=== PATIENT | female | born 1975 ===

== ENCOUNTER 2017-04-23 13:17 | Observation (INO) | payer OTHER ==
[2017-04-23 14:34] LABS: BASO % 0.5 % (0.0-2.0); EOS # 0.1 K/uL (0.0-0.7); EOS % 1.5 % (0.0-4.0); HEMATOCRIT 36.2 % (34.0-47.0); LYMPH # 1.5 K/uL (1.0-4.3); LYMPH % 18.8 % (20.0-40.0); MEAN CORPUSCULAR HEMOGLOBIN 27.6 pg (27.0-31.0); MEAN CORPUSCULAR HGB CONC 33.2 g/dL (33.0-37.0); MEAN PLATELET VOLUME 7.7 fL (7.2-11.7); MONO # 0.5 K/uL (0.0-0.8); MONO % 6.8 % (0.0-10.0); NRBC % 0.1 % (0.0-2.0); RED CELL DISTRIBUTION WIDTH 14.6 % (11.5-14.5); WHITE BLOOD COUNT 8.1 K/uL (4.8-10.8)
[2017-04-23 14:43] LABS: CHLORIDE 105 mmol/L (98-107)
[2017-04-23 14:44] LABS: SODIUM 138 mmol/L (132-148)
[2017-04-23 14:45] LABS: POTASSIUM 4.4 mmol/L (3.6-5.2)
[2017-04-23 14:46] LABS: GFR AFRICAN-AMERICAN > 60
[2017-04-23 14:47] LABS: ALB/GLOB RATIO 1.2 (1.0-2.1); ALKALINE PHOSPHATASE 68 U/L (38-126); ALT/SGPT 46 U/L (9-52); AST/SGOT 54 U/L (14-36); BILIRUBIN,TOTAL 0.7 mg/dL (0.2-1.3); BLOOD UREA NITROGEN 17 mg/dL (7-17); CARBON DIOXIDE 25 mmol/L (22-30); GLUCOSE,RANDOM 117 mg/dL (65-105); TOTAL PROTEIN 7.3 g/dL (6.3-8.3)
--- NOTE | 2017-04-23 14:47 | RAD ---
PROCEDURE: CHEST RADIOGRAPH, 1 VIEW HISTORY: chest pain COMPARISON: None available. FINDINGS: LUNGS: Clear. PLEURA: No pneumothorax or pleural fluid seen. CARDIOVASCULAR: Normal. OSSEOUS STRUCTURES: No significant abnormalities. VISUALIZED UPPER ABDOMEN: Normal. OTHER FINDINGS: None. IMPRESSION: No active disease.
[2017-04-23 14:48] LABS: CALCIUM 8.6 mg/dl (8.6-10.4)
[2017-04-23 14:50] LABS: RBC URINE 5 /hpf (0-3); URINE BILIRUBIN NEGATIVE (NEGATIVE); URINE BLOOD 2+ (NEGATIVE); URINE COLOR Yellow (YELLOW); URINE GLUCOSE (UA) NORMAL (Normal); URINE KETONE TRACE mg/dL (NEGATIVE); URINE LEUKOCYTE ESTERASE NEG Leu/uL (Negative); URINE PROTEIN NEGATIVE (NEGATIVE); URINE UROBILINOGEN NORMAL mg/dL (0.2-1.0); WBC URINE 2 /hpf (0-5)
--- NOTE | 2017-04-23 14:59 | C.PDOC ---
History Of Present Illness 41 year old patient presents to the ED complaining of intermittent left sided chest pain radiating to her left arm. Patient states the pain has a squeezing sensation, is reproducible and non-pleuritic. Patient also complains of headache and left sided breast pain. Patient denies shortness of breath, abdominal pain, nausea, vomiting, diarrhea, palpitations, history of cardiac disease, family history of cardiac disease, diabetes, hypertension, smoking, or hyperlipidemia. Time Seen by Provider: 04/23/17 14:06 Chief Complaint (Nursing): Chest Pain History Per: Patient History/Exam Limitations: no limitations Onset/Duration Of Symptoms: Intermittent Episodes Current Symptoms Are (Timing): Still Present Context: Other Severity: Mild Pain Scale Rating Of: 3 Quality: "Pain", Other (squeezing) Alleviating Factors: None Recent travel outside of the [place]: No Past Medical History Reviewed: Historical Data, Nursing Documentation, Vital Signs Vital Signs: Last Vital Signs Temp 97.4 F L 04/23/17 13:23 Pulse 93 H 04/23/17 13:23 Resp 18 04/23/17 13:23 BP 115/80 04/23/17 13:23 Pulse Ox 98 04/23/17 15:43 - Medical History PMH: Asthma, Kidney Stones Surgical History: Family History: States: No Known Family Hx - Social History Hx Tobacco Use: No Hx Alcohol Use: No Hx Substance Use: No - Immunization History Hx Tetanus Toxoid Vaccination: No Hx Influenza Vaccination: No Hx Pneumococcal Vaccination: No Review Of Systems Except As Marked, All Systems Reviewed And Found Negative. Cardiovascular: Positive for: Chest Pain (left sided). Negative for: Palpitations Respiratory: Negative for: Shortness of Breath Gastrointestinal: Negative for: Nausea, Vomiting, Abdominal Pain, Diarrhea Musculoskeletal: Positive for: Arm Pain (left), Other (left breast pain) Physical Exam - Physical Exam Appears: Non-toxic, No Acute Distress Skin: Warm, Dry, No Rash Head: Atraumatic, Normacephalic Eye(s): bilateral: Normal Inspection, PERRL, EOMI Oral Mucosa: Moist Neck: Normal ROM, Supple Chest: Symmetrical, Tenderness (left upper chest on palpation), Other (left breast: small, hard nodule below nipple. tender to palpation. no fluctuance. no induration.) Cardiovascular: Rhythm Regular Respiratory: Normal Breath Sounds, No Rales, No Rhonchi, No Wheezing Gastrointestinal/Abdominal: Soft, No Tenderness Back: Normal Inspection, No CVA Tenderness Extremity: Normal ROM Neurological/Psych: Oriented x3, Normal Speech, Normal Cognition, Normal Motor, Normal Sensation Gait: Steady ED Course And Treatment - Laboratory Results Result Diagrams: 04/23/17 14:27 04/23/17 14:27 Interpretation Of ECG: Right axis deviation. T wave inversions in 2, 3, AVF, V3 , V4, V5, V6. No acute ST changes. Rate From EC (bpm) O2 Sat by Pulse Oximetry: 98 (room air) Pulse Ox Interpretation: Normal - Radiology CXR: Read By Radiologist (Rahel Dawson) CXR Interpretation: Yes: No Acute Disease - CT Scan/US left breast US Other Rad Studies (CT/US): Read By Radiologist (Merissa Gutiérrez MD), Radiology Report Reviewed CT/US Interpretation: Accession No. : [id number]. Patient Name / ID : [id number] [id number] / [id number]. Exam Date : 04/23/2017 15:05:10 ( Approved ). Study Comment : Sex / Age : F / 41Y. Creator : Merissa Gutiérrez MD. Dictator : Merissa Gutiérrez MD. Process Development Manager : Boxer Operator : Merissa Gutiérrez MD. Approver2 : Report Date : 04/23/2017 15:26:47. My Comment : . PROCEDURE: Limited left breast ultrasound. HISTORY: Left breast pain, under nipple. COMPARISON: None available. TECHNIQUE: Targeted high-resolution ultrasound of the left periareolar region was performed with real-time linear scanner. FINDINGS: There is heterogeneous background echotexture. There is no ductal ectasia, mass , abscess or cyst. IMPRESSION: No sonographic abnormality in the left periareolar region corresponding to the site of patient's pain. Clinical follow -up is advised and further management should be based on the clinical parameters. BIRADS 2 Benign finding. Recommendation: Continue annual screening mammography, as per ACR guidelines. Progress Note: EKG was done. Labs were sent. Tylenol was given. Left breast ultrasound and chest x-ray were taken. - Scribe Statement The provider has reviewed the documentation as recorded by the Scribe Divya Tineo Provider Attestation: All medical record entries made by the Scribe were at my direction and personally dictated by me. I have reviewed the chart and agree that the record accurately reflects my personal performance of the history, physical exam, medical decision making, and the department course for this patient. I have also personally directed, reviewed, and agree with the discharge instructions and disposition.
--- NOTE | 2017-04-23 15:28 | US ---
PROCEDURE: Limited left breast ultrasound HISTORY: Left breast pain, under nipple COMPARISON: None available. TECHNIQUE: Targeted high-resolution ultrasound of the left periareolar region was performed with real-time linear scanner. FINDINGS: There is heterogeneous background echotexture. There is no ductal ectasia, mass, abscess or cyst. IMPRESSION: No sonographic abnormality in the left periareolar region corresponding to the site of patient's pain. Clinical follow-up is advised and further management should be based on the clinical parameters. BIRADS 2 Benign finding Recommendation: Continue annual screening mammography, as per ACR guidelines.
--- NOTE | 2017-04-23 16:33 | CP.PCM.HP ---
History of Present Illness - History of Present Illness History of Present Illness: HPI: Patient is a 41 year old female, with PMHx of diverticulosis, who presents to [facility] ED for chest pain. 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 Patient states she was lifting boxes, when she noticed a pain that "started in her arm" and "ran into her chest." The pain has persisted since then, and gradually worsened. She describes the pain as an intermittent, pressure-like sensation in her chest, that is reproducible, and lasts for "a few seconds" and radiates down her arm. The pain is not made worse with exertion. The pain is not affected by respiration, or position. She rates the pain as 1-2/10 now, with 9/10 on the severity scale at worst. She admits/denies recent strenuous activity. The chest pain has also been associated with headache and left sided breast pain. The breast pain began three days "along with the pain in the arm." She denies change in breast contour/structure, swelling, nipple discharge, or prior history of breast pain. She denies palpitations, shortness of breath, dizziness , abdominal pain, nausea, vomiting, diaphoresis, fever, fatigue, or chills. Shee denies sick contacts or recent travels. 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 absent: Dyspnea, Dyspnea on Exertion, Leg Edema, Lightheadedness, Orthopnea - Respiratory Respiratory: absent: Cough, Dyspnea, Dyspnea on Exertion, Wheezing - Gastrointestinal Gastrointestinal: absent: Abdominal Pain, Bloating, Nausea, Vomiting - Genitourinary Genitourinary: absent: Dysuria - Musculoskeletal Musculoskeletal: absent: Back Pain, Numbness, Tingling - Integumentary Integumentary: absent: Dry Skin, Wounds - Neurological Neurological: absent: Abnormal Movements, Loss of Vision, Tingling, Weakness - Endocrine Endocrine: absent: Polydipsia, Polyphagia, Polyuria Past Patient History - Infectious Disease Hx of Infectious Diseases: None - Past Social History Smoking Status: Never Smoked - PULMONARY Hx Asthma: Yes - RENAL Hx Kidney Stones: Yes - PSYCHIATRIC Hx Substance Use: No - SURGICAL HISTORY Hx Surgeries: Yes Hx Section: Yes (x2) Other/Comment: Gall stones removed as per patient. Right kidney removed as per patient - ANESTHESIA Hx Anesthesia: Yes Hx Anesthesia Reactions: No Meds Allergies/Adverse Reactions: Allergies Allergy/AdvReac Type Severity Reaction Status Date / Time No Known Allergies Allergy Verified 04/23/17 13:24 Physical Exam - Constitutional Appears: Non-toxic, No Acute Distress - Head Exam Head Exam: ATRAUMATIC, NORMAL INSPECTION, NORMOCEPHALIC - Eye Exam Eye Exam: EOMI. absent: Scleral icterus Pupil Exam: PERRL - ENT Exam ENT Exam: Mucous Membranes Moist Additional comments: NO JVD appreciated - Neck Exam Neck exam: Positive for: Normal Inspection - Respiratory Exam Respiratory Exam: Chest Wall Tenderness, Clear to Auscultation Bilateral, NORMAL BREATHING PATTERN. absent: Accessory Muscle Use, Decreased Breath Sounds , Prolonged Expiratory Phase, Rales, Rhonchi, Wheezes, Respiratory Distress, Stridor - Cardiovascular Exam Cardiovascular Exam: REGULAR RHYTHM, +S1, +S2. absent: Bradycardia, Tachycardia , JVD, +S4, Systolic Murmur - GI/Abdominal Exam GI & Abdominal Exam: Normal Bowel Sounds, Soft. absent: Tenderness - Extremities Exam Extremities exam: Positive for: normal inspection. Negative for: pedal edema, tenderness, pedal pulses present - Back Exam Back exam: absent: CVA tenderness (L), CVA tenderness (R) - Neurological Exam Neurological exam: Alert, Oriented x3 - Psychiatric Exam Psychiatric exam: Normal Affect, Normal Mood - Skin Skin Exam: Dry, Normal Color, Warm Results - Vital Signs Recent Vital Signs: Last Vital Signs Temp 97.4 F L 06/14/17 13:23 Pulse 93 H 04/23/17 13:23 Resp 18 04/23/17 13:23 BP 115/80 04/23/17 13:23 Pulse Ox 98 04/23/17 15:58 - Labs Result Diagrams: 04/23/17 14:27 04/23/17 14:27 Assessment & Plan - Assessment and Plan (Free Text) Plan: Chest Pain Observe on Tele PORTER negative x 1; f/u 2 additional Q6H EKG: Rate 67 bpm; T wave inversions seen in lead III; no acute ST changes CXR (04/23/2017): NAD (see full report) D-dimer: < 200 Heart score: 2 pts LOW SCORE (Positive Criteria:Moderately suspicious hx, Obesity as Risk Factor; Risk of MACE ~1% in 6 weeks) ASA 325 mg PO given in ED - ASA 81mg PO Daily HOLD NICOL, BB as pt normotensive O2 2L PRN f/u ECHO f/u TSH/free T4, lipid panel, Hgb A1C f/u AM CBC, CMP, Mg, Phos Cardiology consult: Dr. James, help appreciated - f/u reccs Breast Pain Left breast pain, under nipple US left breast (04/23/17): No sonographic abnormality in left periareolar region corresponding to site of pts pain. F/U advised. BIRADS 2. Continue annual screening mammogram Prophylaxis SCDs Lovenox 40mg Daily Pepcid 20mg PO BID
[2017-04-23] MEDS ORDERED: Enoxaparin 40 mg Syringe SC SCH (17:45)
[2017-04-23] MEDS ORDERED: Enoxaparin 40 mg Syringe ONE (20:05)
[2017-04-23] MEDS: Enoxaparin 40 mg Syringe SC SCH (20:06)
[2017-04-24 07:52] LABS: BASO % 0.4 % (0.0-2.0); EOS # 0.2 K/uL (0.0-0.7); EOS % 2.8 % (0.0-4.0); HEMATOCRIT 35.2 % (34.0-47.0); LYMPH # 1.9 K/uL (1.0-4.3); LYMPH % 22.5 % (20.0-40.0); MEAN CELL VOLUME 84.2 fL (81.0-99.0); MEAN CORPUSCULAR HEMOGLOBIN 27.7 pg (27.0-31.0); MEAN CORPUSCULAR HGB CONC 32.9 g/dL (33.0-37.0); MONO # 0.5 K/uL (0.0-0.8); NRBC % 0.1 % (0.0-2.0); RED CELL DISTRIBUTION WIDTH 14.7 % (11.5-14.5); WHITE BLOOD COUNT 8.2 K/uL (4.8-10.8)
[2017-04-24 08:33] LABS: CHLORIDE 104 mmol/L (98-107); POTASSIUM 3.9 mmol/L (3.6-5.2); SODIUM 137 mmol/L (132-148)
[2017-04-24 08:35] LABS: ALB/GLOB RATIO 1.1 (1.0-2.1); AST/SGOT 34 U/L (14-36); BILIRUBIN,TOTAL 0.4 mg/dL (0.2-1.3); CARBON DIOXIDE 24 mmol/L (22-30); CHOLESTEROL 166 mg/dL (0-199); GFR AFRICAN-AMERICAN > 60; TOTAL PROTEIN 6.4 g/dL (6.3-8.3)
[2017-04-24 08:36] LABS: ALKALINE PHOSPHATASE 77 U/L (38-126); ALT/SGPT 46 U/L (9-52); BLOOD UREA NITROGEN 16 mg/dL (7-17); CALCIUM 8.5 mg/dl (8.6-10.4); GLUCOSE,RANDOM 92 mg/dL (65-105); PHOSPHOROUS 3.5 mg/dL (2.5-4.5)
[2017-04-24 08:48] LABS: THYROID STIMULATING HORMONE 2.98 mIU/L (0.46-4.68)
--- NOTE | 2017-04-24 09:26 | CP.PCM.PN ---
<Blane Ortiz - Last Filed: 04/24/17 14:16> Subjective - Date & Time of Evaluation Date of Evaluation: 04/24/17 Time of Evaluation: 07:32 - Subjective Subjective: PGY 1 Medicine Note- Dr. Bah's service Pt seen and examined. Patient states that she is having some midsternal reproducible non radiating pain. She states that the pain is not exacerbated by breathing or movements. She states that she did have an episode of nausea yesterday afternoon which has since resolved. She denies headaches, visual changes, palpitations, constipation, diarrhea, paresthesias, nausea, vomiting at this time. Objective - Vital Signs/Intake and Output Vital Signs (last 24 hours): Temp Pulse Resp BP Pulse Ox 98.0 F 73 20 117/81 99 04/24/17 08:41 04/24/17 08:41 04/24/17 08:41 04/24/17 08:41 04/24/17 08:41 - Medications Medications: Current Medications Aspirin (Ecotrin) 81 mg PO DAILY [facility] Enoxaparin Sodium (Lovenox) 40 mg SC Q24H [facility] Last Admin: 04/23/17 20:06 Dose: 40 mg - Labs Labs: 04/24/17 07:37 04/24/17 07:37 - Constitutional Appears: Non-toxic, No Acute Distress - Head Exam Head Exam: ATRAUMATIC, NORMAL INSPECTION, NORMOCEPHALIC - Eye Exam Eye Exam: EOMI, Normal appearance, PERRL - ENT Exam ENT Exam: Mucous Membranes Moist, Normal Exam - Neck Exam Neck Exam: Full ROM, Normal Inspection - Respiratory Exam Respiratory Exam: Clear to Ausculation Bilateral, NORMAL BREATHING PATTERN. absent: Wheezes - Cardiovascular Exam Cardiovascular Exam: REGULAR RHYTHM, +S1, +S2. absent: Tachycardia - GI/Abdominal Exam GI & Abdominal Exam: Soft, Normal Bowel Sounds - Extremities Exam Extremities Exam: Full ROM, Normal Capillary Refill, Normal Inspection - Back Exam Back Exam: Full ROM - Neurological Exam Neurological Exam: Alert, Awake, CN II-XII Intact, Oriented x3 - Psychiatric Exam Psychiatric exam: Normal Affect, Normal Mood - Skin Skin Exam: Dry, Normal Color, Warm Assessment and Plan - Assessment and Plan (Free Text) Assessment: Chest Pain Observe on Tele PORTER negative x3 EKG: Rate 67 bpm; sporadic T wave inversions seen in lead III; no acute ST changes or prolonged [place] interval appreciated CXR (04/23/2017): NAD (see full report) D-dimer: < 200 Heart score: 2 pts LOW SCORE (Positive Criteria:Moderately suspicious hx, Obesity as Risk Factor; Risk of MACE ~1% in 6 weeks) - ASA 81mg PO Daily HOLD NICOL, BB as pt normotensive f/u ECHO TSH/free T4 WNL, lipid panel WNL, Hgb A1C 5.2 Cardiology consult: Dr. James, help appreciated - f/u reccs Toradol 15 mg Q6 PRN for pain Oxygen via nasal canula as needed Cont to monitor Breast Pain Left breast pain, under nipple US left breast (04/23/17): No sonographic abnormality in left periareolar region corresponding to site of pts pain. F/U advised. BIRADS 2. Continue annual screening mammogram Toradol 15 mg Q6 PRN for pain Prophylaxis SCDs Lovenox 40mg Daily Pepcid 20mg PO BID <Prudence Bah V - Last Filed: 04/24/17 23:53> Objective - Vital Signs/Intake and Output Vital Signs (last 24 hours): Temp Pulse Resp BP Pulse Ox 97.9 F 73 20 110/72 99 04/24/17 15:00 04/24/17 15:44 04/24/17 15:00 04/24/17 15:00 04/24/17 15:00 Intake and Output: 04/24/17 04/25/17 18:59 06:59 Intake Total 600 250 Balance 600 250 - Medications Medications: Current Medications Aspirin (Ecotrin) 81 mg PO DAILY [facility] Last Admin: 04/24/17 10:41 Dose: 81 mg Enoxaparin Sodium (Lovenox) 40 mg SC Q24H [facility] Last Admin: 04/24/17 17:14 Dose: 40 mg Ketorolac Tromethamine (Toradol) 15 mg IVP Q6 PRN PRN Reason: Pain, moderate (4-7) - Labs Labs: 04/24/17 07:37 04/24/17 07:37 Attending/Attestation - Attestation I have personally seen and examined this patient.: Yes I have fully participated in the care of the patient.: Yes I have reviewed all pertinent clinical information, including history, physical exam and plan: Yes Notes (Text): Patient seen, examined, and case discussed with day-time resident. Patient seen this morning during rounds. Reporting mild chest pain upon palpation. Completed echocardiogram this morning; awaiting report. PORTER X3; negative. Patient understands she will need outpatient mammography when ready to be discharged. Pending cardiology evaluation Assessment/Plan 1) Chest Pain * Observe on Tele * Cardiology (Dr. James) on consult-->help appreciated * PORTER negative x3 * EKG: Rate 67 bpm; sporadic T wave inversions seen in lead III; no acute ST changes or prolonged [place] interval appreciated on admission;\ * EKG: NSR * CXR (04/23/2017): NAD (see full report) * D-dimer: < 200 * Heart score: 2 pts LOW SCORE (Positive Criteria:Moderately suspicious hx, Obesity as Risk Factor; Risk of MACE ~1% in 6 weeks) * ASA 81mg PO Daily * HOLD NICOL, BB as pt normotensive * Pending echocardiogram * TSH/free T4 WNL, lipid panel WNL, Hgb A1C 5.2 * start Toradol 15 mg Q6 PRN for pain * Oxygen via nasal canula as needed * Cont to monitor 2) Breast Pain * Left breast pain, under nipple * US left breast (04/23/17): No sonographic abnormality in left periareolar region corresponding to site of pts pain. F/U advised. BIRADS 2. Continue annual screening mammogram; recommended to patient she will need outpatient mammography * Toradol 15 mg Q6 PRN for pain 3) Prophylaxis * SCDs * Lovenox 40mg Daily * Pepcid 20mg PO BID Disposition * possible discharge tomorrow
[2017-04-24] MEDS: Enoxaparin 40 mg Syringe SC SCH (17:14)
--- NOTE | 2017-04-24 23:18 | DS ---
HISTORY OF PRESENT ILLNESS: This is a 41-year-old woman with no previous medical illness, p resented to [facility] with retrosternal chest pressure, sometimes radiating to the left arm wit h numbness. The patient was evaluated in the ER and admitted. EKG was normal. Cardiac enzymes were normal serially. Echocardiogram showed no wall motion abnormality except for mild mitral regurg and the pressures in the ventricle and the atria were normal. Currently, patient has no chest pain. FAMILY HISTORY: Negative for any coronary artery disease or [place] or hypercholesterolemia. REVIEW OF SYSTEMS: Negative. PHYSICAL EXAMINATION LUNGS: Clear to auscultation and percussion. HEART: S1, S2 normal. No gallops or murmur. ABDOMEN: Soft, nontender. EXTREMITIES: Normal. ASSESSMENT AND PLAN: The patient currently has a negative cardiac workup. The patient could be disc harged. Please arrange for IV Lexiscan Myoview stress test as an outpatient to be done under Dr. James. Ricardo James MD cc: [id number] TT: 04/24/2017 23:17:41 ln
--- NOTE | 2017-04-24 23:20 | CARD ---
APPROVED REPORT EKG Measurement Heart [id number] <Conclusion> Normal sinus rhythm Possible Left atrial enlargement Rightward axis Nonspecific T wave abnormality Abnormal ECG
--- NOTE | 2017-04-25 01:14 | CARD ---
APPROVED REPORT EXAM: Two-dimensional and M-mode echocardiogram with Doppler and color Doppler. Other Information Quality : GoodRhythm : NSR INDICATION Abnormal EKG/Arrhythmia Chest Pain M-Mode DIMENSIONS RVDd2.18 (2.1-3.2cm)Left Atrium (MM)4.00 (2.5-4.0cm) IVSd0.78 (0.7-1.1cm)Aortic Root2.77 (2.2-3.7cm) LVDd4.88 (4.0-5.6cm)Aortic Cusp Exc.1.89 (1.5-2.0cm) PWd0.75 (0.7-1.1cm)FS (%) 34 % LVDs3.22 (2.0-3.8cm)LVEF (%)63 (>50%) Mitral Valve MV E Bnnyvuib267.2cm/sMV A Qdcfwhoz942.9cm/sE/A ratio0.9 TDI E/Lateral E'0.0E/Medial E'0.0 Tricuspid Valve TR Peak Lsetspyv735kh/sTR Peak Gr.[id number] LEFT VENTRICLE The left ventricle is normal size. There is normal left ventricular wall thickness. Left ventricle systolic function is normal with Ejection Fraction of 65-70%. There is normal LV segmental wall motion. Transmitral Doppler flow pattern is abnormal.Grade I-abnormal relaxation pattern. No left ventricle thrombus noted on this study. RIGHT VENTRICLE The right ventricle is normal size. The right ventricular systolic function is normal. ATRIA The left atrium size is normal. The right atrium size is normal. AORTIC VALVE The aortic valve is trileaflet. No aortic regurgitation is present. There is no aortic valvular stenosis. There is no aortic valvular vegetation. MITRAL VALVE The mitral valve is normal in structure. There is no evidence of mitral valve prolapse. There is no mitral valve stenosis. Mitral regurgitation is mild. TRICUSPID VALVE The tricuspid valve is normal in structure. There is mild tricuspid regurgitation. Right ventricular systolic pressure is estimated at 30-40 mmHg. There is no pulmonary hypertension. There is no tricuspid valve prolapse or vegetation. There is no tricuspid valve stenosis. PULMONIC VALVE The pulmonic valve is not well visualized. There is no pulmonic valvular regurgitation. There is no pulmonic valvular stenosis. GREAT VESSELS The aortic root is normal in size. The IVC is normal in size and collapses >50% with inspiration. PERICARDIAL EFFUSION There is no pericardial effusion. There is no pleural effusion. <Conclusion> The left ventricle is normal size. Left ventricle systolic function is normal with Ejection Fraction of 65-70%. Transmitral Doppler flow pattern is abnormal.Grade I-abnormal relaxation pattern. The right ventricle is normal size. The right ventricular systolic function is normal. The left atrium size is normal. The right atrium size is normal. Mitral regurgitation is mild.
--- NOTE | 2017-04-25 07:07 | CP.PCM.PN ---
Subjective - Date & Time of Evaluation Date of Evaluation: 04/25/17 Time of Evaluation: 07:06 - Subjective Subjective: PGY-[address] progress note for medicine Dr. Bah Pt seen and examined at bedside. Nursing reports no acute events overnight. She denies any episodes of chest, arm, or breast pain overnight. She reports tolerating her diet and moving her bowels without difficulty. Dr. James, managed services sales consultant, recommends outpatient stress test. Objective - Vital Signs/Intake and Output Vital Signs (last 24 hours): Temp Pulse Resp BP Pulse Ox 97.9 F 74 20 97/65 L 96 04/24/17 23:25 04/24/17 23:25 04/24/17 23:25 04/24/17 23:25 04/24/17 23:25 Intake and Output: 04/25/17 04/25/17 06:59 18:59 Intake Total 250 Balance 250 - Medications Medications: Current Medications Aspirin (Ecotrin) 81 mg PO DAILY [facility] Last Admin: 04/24/17 10:41 Dose: 81 mg Enoxaparin Sodium (Lovenox) 40 mg SC Q24H [facility] Last Admin: 04/24/17 17:14 Dose: 40 mg Ketorolac Tromethamine (Toradol) 15 mg IVP Q6 PRN PRN Reason: Pain, moderate (4-7) - Labs Labs: 04/24/17 07:37 04/24/17 07:37 - Additional Findings Additional findings: - Constitutional Appears: Non-toxic, No Acute Distress - Head Exam Head Exam: ATRAUMATIC, NORMAL INSPECTION, NORMOCEPHALIC - Eye Exam Eye Exam: EOMI, Normal appearance, PERRL - ENT Exam ENT Exam: Mucous Membranes Moist, Normal Exam - Neck Exam Neck Exam: Full ROM, Normal Inspection - Respiratory Exam Respiratory Exam: Clear to Ausculation Bilateral, NORMAL BREATHING PATTERN. absent: Wheezes - Cardiovascular Exam Cardiovascular Exam: REGULAR RHYTHM, +S1, +S2. absent: Tachycardia - GI/Abdominal Exam GI & Abdominal Exam: Soft, Normal Bowel Sounds - Extremities Exam Extremities Exam: Full ROM, Normal Capillary Refill, Normal Inspection - Back Exam Back Exam: Full ROM - Neurological Exam Neurological Exam: Alert, Awake, CN II-XII Intact, Oriented x3 - Psychiatric Exam Psychiatric exam: Normal Affect, Normal Mood - Skin Skin Exam: Dry, Normal Color, Warm Assessment and Plan - Assessment and Plan (Free Text) Plan: Assessment/Plan 1) Chest Pain * Observe on Tele * PORTER negative x3 * EKG: Rate 67 bpm; sporadic T wave inversions seen in lead III; no acute ST changes or prolonged [place] interval appreciated on admission; f/u NSR * CXR (04/23/2017): NAD (see full report) * D-dimer: < 200 * Heart score: 2 pts LOW SCORE (Positive Criteria:Moderately suspicious hx, Obesity as Risk Factor; Risk of MACE ~1% in 6 weeks) * ASA 81mg PO Daily * HOLD NICOL, BB as pt normotensive * Echocardiogram (04/22/17): EF 63%, LV WNL * TSH/free T4 WNL, lipid panel WNL, Hgb A1C 5.2 * Has not requested Toradol * Oxygen via nasal canula as needed * Cardiology (Dr. James) on consult-->help appreciated * pt should have OPDX NM stress test 2) Breast Pain * Left breast pain, under nipple * US left breast (04/23/17): No sonographic abnormality in left periareolar region corresponding to site of pts pain. F/U advised. BIRADS 2. Continue annual screening mammogram; recommended to patient she will need outpatient mammography * Toradol 15 mg Q6 PRN for pain - not utilized by pt 3) Prophylaxis * SCDs * Lovenox 40mg Daily * Pepcid 20mg PO BID Disposition * possible discharge today
[2017-04-25 08:11] LABS: BASO % 0.5 % (0.0-2.0); EOS # 0.2 K/uL (0.0-0.7); EOS % 2.3 % (0.0-4.0); HEMATOCRIT 36.5 % (34.0-47.0); LYMPH # 1.6 K/uL (1.0-4.3); LYMPH % 20.1 % (20.0-40.0); MEAN CELL VOLUME 83.6 fL (81.0-99.0); MEAN CORPUSCULAR HEMOGLOBIN 27.5 pg (27.0-31.0); MEAN CORPUSCULAR HGB CONC 32.9 g/dL (33.0-37.0); MEAN PLATELET VOLUME 7.9 fL (7.2-11.7); MONO # 0.5 K/uL (0.0-0.8); MONO % 6.1 % (0.0-10.0); RED CELL DISTRIBUTION WIDTH 14.5 % (11.5-14.5); WHITE BLOOD COUNT 7.7 K/uL (4.8-10.8)
[2017-04-25 08:28] VITALS: BP 113/73; RESP 17; TEMP 97.7; O2SAT 97
[2017-04-25 09:49] LABS: CHLORIDE 107 mmol/L (98-107); SODIUM 140 mmol/L (132-148)
[2017-04-25 09:51] LABS: BILIRUBIN,TOTAL 0.4 mg/dL (0.2-1.3); GFR AFRICAN-AMERICAN > 60
[2017-04-25 09:52] LABS: ALB/GLOB RATIO 1.3 (1.0-2.1); ALKALINE PHOSPHATASE 64 U/L (38-126); ALT/SGPT 41 U/L (9-52); AST/SGOT 27 U/L (14-36); BLOOD UREA NITROGEN 16 mg/dL (7-17); CALCIUM 8.3 mg/dl (8.6-10.4); CARBON DIOXIDE 24 mmol/L (22-30); GLUCOSE,RANDOM 83 mg/dL (65-105); PHOSPHOROUS 3.3 mg/dL (2.5-4.5); TOTAL PROTEIN 6.4 g/dL (6.3-8.3)
[2017-04-25 13:14] VITALS: PULSE 82
--- NOTE | 2017-04-25 20:02 | CP.PCM.DIS ---
Provider - Provider Date of Admission: 04/23/17 16:08 Attending physician: Prudence Bah DO Primary care physician: Dr. Zavala (PMD) Dr. Bah (Hospitalist Team) Consults: Cardio: Jacob Time Spent in preparation of Discharge (in minutes): 45 Diagnosis - Discharge Diagnosis (1) Chest pain Status: Acute Comment: PORTER negative 3. Continue Baby ASA. f/u with Dr. James (OPDX) for stress test (2) Breast pain Status: Acute Comment: US negative, BIRADS 2: Get yearly mammogram. f/u with primary, Dr. Zavala, for breast exam and Mammo prescription Hospital Course - Lab Results Lab Results: Most Recent Lab Values WBC 7.7 K/uL (4.8-10.8) 04/25/17 07:57 RBC 4.37 Mil/uL (3.80-5.20) 04/25/17 07:57 Hgb 12.0 g/dL (11.0-16.0) 04/25/17 07:57 Hct 36.5 % (34.0-47.0) 04/25/17 07:57 MCV 83.6 fL (81.0-99.0) 04/25/17 07:57 MCH 27.5 pg (27.0-31.0) 04/25/17 07:57 MCHC 32.9 g/dL (33.0-37.0) L 04/25/17 07:57 RDW 14.5 % (11.5-14.5) 04/25/17 07:57 Plt Count 249 K/uL (130-400) 04/25/17 07:57 MPV 7.9 fL (7.2-11.7) 04/25/17 07:57 Neut % (Auto) 71.0 % (50.0-75.0) 04/25/17 07:57 Lymph % (Auto) 20.1 % (20.0-40.0) 04/25/17 07:57 [place] % (Auto) 6.1 % (0.0-10.0) 04/25/17 07:57 Eos % (Auto) 2.3 % (0.0-4.0) 04/25/17 07:57 Baso % (Auto) 0.5 % (0.0-2.0) 04/25/17 07:57 Neut # 5.5 K/uL (1.8-7.0) 04/25/17 07:57 Lymph # 1.6 K/uL (1.0-4.3) 04/25/17 07:57 [place] # 0.5 K/uL (0.0-0.8) 04/25/17 07:57 Eos # 0.2 K/uL (0.0-0.7) 04/25/17 07:57 Baso # 0.0 K/uL (0.0-0.2) 04/25/17 07:57 D-Dimer, Quantitative < 200 ng/mlDDU (0-243) 04/23/17 14:27 Sodium 140 mmol/L (132-148) 04/25/17 07:57 Potassium 4.0 mmol/L (3.6-5.2) 04/25/17 07:57 Chloride 107 mmol/L (98-107) 04/25/17 07:57 Carbon Dioxide 24 mmol/L (22-30) 04/25/17 07:57 Anion Gap 13 (10-20) 04/25/17 07:57 BUN 16 mg/dL (7-17) 04/25/17 07:57 Creatinine 0.7 MG/DL (0.7-1.2) 04/25/17 07:57 Est GFR ( Amer) > 60 04/25/17 07:57 Est GFR (Non-Af Amer) > 60 04/25/17 07:57 Random Glucose 83 mg/dL (65-105) 04/25/17 07:57 Hemoglobin A1c 5.2 % (4.2-6.5) 04/24/17 07:37 Calcium 8.3 mg/dl (8.6-10.4) L 04/25/17 07:57 Phosphorus 3.3 mg/dL (2.5-4.5) 04/25/17 07:57 Magnesium 2.0 mg/dL (1.6-2.3) 04/25/17 07:57 Total Bilirubin 0.4 mg/dL (0.2-1.3) 04/25/17 07:57 AST 27 U/L (14-36) 04/25/17 07:57 ALT 41 U/L (9-52) 04/25/17 07:57 Alkaline Phosphatase 64 U/L (38-126) 04/25/17 07:57 Total Creatine Kinase 149 U/L (30-135) H 04/24/17 02:30 CK-MB (Mass) 1.43 ng/mL (0.0-3.38) 04/24/17 02:30 Troponin I < 0.0120 ng/mL (0.00-0.120) 04/23/17 14:27 Troponin I, Quant < 0.0120 ng/mL (0.00-0.120) 04/24/17 02:30 Total Protein 6.4 g/dL (6.3-8.3) 04/25/17 07:57 Albumin 3.6 g/dL (3.5-5.0) 04/25/17 07:57 Globulin 2.8 gm/dL (2.2-3.9) 04/25/17 07:57 Albumin/Globulin Ratio 1.3 (1.0-2.1) 04/25/17 07:57 Triglycerides 66 mg/dL (0-149) 04/24/17 07:37 Cholesterol 166 mg/dL (0-199) 04/24/17 07:37 LDL Cholesterol Direct 115 mg/dL (0-129) 04/24/17 07:37 HDL Cholesterol 43 mg/dL (30-70) 04/24/17 07:37 Free T4 1.07 ng/dL (0.78-2.19) 04/24/17 07:37 TSH 3rd Generation 2.98 mIU/L (0.46-4.68) 04/24/17 07:37 Urine Color Yellow (YELLOW) 04/23/17 14:27 Urine Clarity Hazy (Clear) 04/23/17 14:27 Urine pH 5.0 (5.0-8.0) 04/23/17 14:27 Ur Specific [place] 1.028 (1.003-1.030) 04/23/17 14:27 Urine Protein Negative mg/dL (NEGATIVE) 04/23/17 14:27 Urine Glucose (UA) Normal mg/dL (Normal) 04/23/17 14:27 Urine Ketones Trace mg/dL (NEGATIVE) 04/23/17 14:27 Urine Blood 2+ (NEGATIVE) H 04/23/17 14:27 Urine Nitrate Negative (NEGATIVE) 04/23/17 14:27 Urine Bilirubin Negative (NEGATIVE) 04/23/17 14:27 Urine Urobilinogen Normal mg/dL (0.2-1.0) 04/23/17 14:27 Ur Leukocyte Esterase Neg Melody/uL (Negative) 04/23/17 14:27 Urine WBC (Auto) 2 /hpf (0-5) 04/23/17 14:27 Urine RBC (Auto) 5 /hpf (0-3) H 04/23/17 14:27 Ur Squamous Epith Cells 7 /hpf (0-5) H 04/23/17 14:27 Urine HCG, Qual Negative (NEGATIVE) 04/23/17 14:27 - Hospital Course Hospital Course: On admission: Patient is a 41 year old female, with PMHx of diverticulosis, who presents to [facility] ED for chest pain. 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 Patient states she was lifting boxes, when she noticed a pain that "started in her arm" and "ran into her chest." The pain has persisted since then, and gradually worsened. She describes the pain as an intermittent, pressure-like sensation in her chest, that is reproducible, and lasts for "a few seconds" and radiates down her arm. The pain is not made worse with exertion. The pain is not affected by respiration, or position. She rates the pain as 1-2/10 now, with 9/10 on the severity scale at worst. She admits/denies recent strenuous activity. The chest pain has also been associated with headache and left sided breast pain. The breast pain began three days "along with the pain in the arm." She denies change in breast contour/structure, swelling, nipple discharge, or prior history of breast pain. She denies palpitations, shortness of breath, dizziness , abdominal pain, nausea, vomiting, diaphoresis, fever, fatigue, or chills. Shee denies sick contacts or recent travels. Hospital course: Pt admitted for observation on telemetry floor on 04/23/17 for chest pain. PORTER panel negative x 3. EKG showing sporadic t wave inversions in lead III with no acute changes or prolonged MT interval. [employer] Dr. James was consulted, who recommended outpatient stress test. With no additional episodes of chest pain, pt was discharged on 04/25/17. Pt also complained of breast pain on presentation. US showed no songraphic abnormalities, but radiologist advised follow up. Pt will need breast exam and yearly mammogram. These directions were written in discharge plan given to pt in E[place]an. She was advised to follow up with PMD DR. Zavala, or the [facility]. - Date & Time of H&P Date of H&P: 04/23/17 Time of H&P: 16:24 Discharge Exam - Additional Findings Additional findings: - Constitutional Appears: Non-toxic, No Acute Distress - Head Exam Head Exam: ATRAUMATIC, NORMAL INSPECTION, NORMOCEPHALIC - Eye Exam Eye Exam: EOMI, Normal appearance, PERRL - ENT Exam ENT Exam: Mucous Membranes Moist, Normal Exam - Neck Exam Neck Exam: Full ROM, Normal Inspection - Respiratory Exam Respiratory Exam: Clear to Ausculation Bilateral, NORMAL BREATHING PATTERN. absent: Wheezes - Cardiovascular Exam Cardiovascular Exam: REGULAR RHYTHM, +S1, +S2. absent: Tachycardia - GI/Abdominal Exam GI & Abdominal Exam: Soft, Normal Bowel Sounds - Extremities Exam Extremities Exam: Full ROM, Normal Capillary Refill, Normal Inspection - Back Exam Back Exam: Full ROM - Neurological Exam Neurological Exam: Alert, Awake, CN II-XII Intact, Oriented x3 - Psychiatric Exam Psychiatric exam: Normal Affect, Normal Mood - Skin Skin Exam: Dry, Normal Color, Warm Discharge Plan - Follow Up Plan Condition: GOOD Disposition: HOME/ ROUTINE Instructions: Aspirin (By mouth), Cardiac Stress Test (DC), Chest Pain (DC), Mammogram (DC), Heart Healthy Diet (DC), Abdominal Pain (ED) Additional Instructions: Patient stable for discharge per Dr. Bah. Patient was not on any home medications. She has been prescribed the following medications: none. She is advised to take over the counter baby aspirin (81mg) daily. Patient is make an appointment with their PMD, Dr. Zavala, in [place], within one week of discharge for follow-up. She should also make an appointment to follow up with specialist, Dr. James, Cardiology, to continue evaluation of chest pain. She should also follow up with PMD in regards to breast ultrasound results. While the ultrasound showed no abnormalities, radiologist recommended annual screening mammogram. She should see her PMD for manual breast exam as well. He/she is advised to return to the emergency department if symptoms return or worsen. These instructions were given to the pt in [place]. Patient expressed verbal understanding of these instructions. Prescribed medications: None Non-prescription medications: Baby Aspirin 81mg daily Recommended procedures: follow up with Dr. James, [employer], for stress test Manual breast exam with PMD, annual screening mammogram Translation to E[place]an: Paciente estable para la descarga por Dr. Bah. Paciente no estaba en algn medicamento casero. Lucila se le regalado recetado estos medicamentos: ninguno. Lucila aconseja a diane sobre la aspirina de baby de contador (81mg) al da. Paciente es hacer tati fabian con dos santos PMD, Dr. [place], [place], dentro de tati semana de descarga para el seguimiento. Lucila tambin debe hacer tati fabian de seguimiento con el especialista, el Dr. James, cardiologa, para continuar la evaluacin del dolor en el pecho. Lucila debe tambin seguimiento con PMD en lo que respecta a los resultados de ultrasonido de mama. Mientras que el ultrasonido no demostr ninguna anormalidad, radilogo recomienda mamografa anual. Lucila debe marisol dos santos PMD para manual examen as. l o lucila recomienda para volver al servicio de urgencias si los sntomas volver n o empeoraran. Estas instrucciones fueron dadas al pt en espaol. Paciente expres dos santos comprensin verbal de estas instrucciones. Medicamentos recetados: Ninguno Medicamentos sin receta: Beb aspirina 81mg al da Procedimientos recomendados: seguimiento con el Dr. James, cardilogo, para prueba de tensin Referrals: Remberto Zavala MD [Medical Doctor] - Ricardo James MD [Staff Provider] -
--- NOTE | 2017-04-27 08:45 | CARD ---
APPROVED REPORT EKG Measurement Heart [id number] [place] 150P49 [id number] <Conclusion> Normal sinus rhythm Rightward axis Borderline ECG
--- NOTE | 2017-04-28 20:53 | CARD ---
APPROVED REPORT EKG Measurement Heart [id number] [place] 138P50 [id number] <Conclusion> Normal sinus rhythm Rightward axis Nonspecific T wave abnormality Abnormal ECG
== END 2017-04-25 13:34 | disposition home or self-care (01) ==
LOC: C.ER 13:17 → C.9E 16:08 → C.6T 18:47 → C.9E 19:17 → C.6T 20:56
PROVIDERS: ADMIT Hospitalist; ATTEND Hospitalist
DX: R07.9 Chest pain, unspecified (principal); N64.4 Mastodynia; Z87.442 Personal history of urinary calculi; J45.909 Unspecified asthma, uncomplicated
CPT/HCPCS: 36415; 71010; 76642; 80053; 80061; 81001; 82550; 82553; 83036; 83735; 84100; 84439; 84443; 84484; 84703; 85025; 85378; 93005; 93306; 96372; 99285; G0378; J1650

== ENCOUNTER 2017-06-27 03:55 | Emergency (ER) | payer OTHER ==
--- NOTE | 2017-06-27 04:07 | C.PDOC ---
History Of Present Illness 41 y/o female c/o intermittent chest pain and cough since 10 pm last night. Patient is speaking in full sentences. Denies fever, chills, nausea, vomiting, SOB, palpitations, diaphoresis, lower extremity pain, light headedness, or any other complaints. Time Seen by Provider: 06/27/17 04:07 Chief Complaint (Nursing): Chest Pain History Per: Patient History/Exam Limitations: no limitations Onset/Duration Of Symptoms: Days (Last night) Current Symptoms Are (Timing): Still Present Severity: Mild Pain Scale Rating Of: 3 Quality: Dull, Aching Associated Symptoms: denies: Nausea, Diaphoresis Modifying Factors: None Exacerbating Factors: None Alleviating Factors: None Recent travel outside of the [place]: No Additional History Per: Patient Past Medical History Reviewed: Historical Data, Nursing Documentation, Vital Signs Vital Signs: Last Vital Signs Temp 97.5 F L 06/27/17 04:05 Pulse 83 06/27/17 04:05 Resp 14 06/27/17 04:05 BP 122/51 L 06/27/17 04:05 Pulse Ox 98 06/27/17 04:38 - Medical History PMH: Asthma, Kidney Stones Surgical History: Family History: States: No Known Family Hx - Social History Hx Tobacco Use: No Hx Alcohol Use: No Hx Substance Use: No - Immunization History Hx Tetanus Toxoid Vaccination: No Hx Influenza Vaccination: No Hx Pneumococcal Vaccination: No Review Of Systems Constitutional: Negative for: Fever, Chills Eyes: Negative for: Redness ENT: Negative for: Throat Pain Cardiovascular: Positive for: Chest Pain. Negative for: Palpitations, Light Headedness Respiratory: Positive for: Cough. Negative for: Shortness of Breath Gastrointestinal: Negative for: Nausea, Vomiting Genitourinary: Negative for: Dysuria Musculoskeletal: Negative for: Leg Pain Skin: Negative for: Rash Neurological: Negative for: Weakness Psych: Negative for: Anxiety Physical Exam - Physical Exam Appears: Non-toxic, No Acute Distress Skin: Warm, Dry Head: Normacephalic Eye(s): bilateral: Normal Inspection Oral Mucosa: Moist Neck: Supple Chest: Tenderness (Reproducible chest wall tenderness) Cardiovascular: Rhythm Regular Respiratory: No Rales, Rhonchi (Scattered rhonchi), No Wheezing, Other ( Speaking in full sentences) Gastrointestinal/Abdominal: Soft, No Tenderness Back: No CVA Tenderness Extremity: No Tenderness Extremity: Bilateral: Atraumatic, Normal Color And Temperature Pulses: Left Dorsalis Pedis: Normal, Right Dorsalis Pedis: Normal Neurological/Psych: Oriented x3, Normal Speech, Normal Cognition Gait: Steady ED Course And Treatment - Laboratory Results Result Diagrams: 06/27/17 04:31 06/27/17 04:51 ECG: Interpreted By Me, Viewed By Me ECG Rhythm: Sinus Rhythm (85), Nonspecific Changes O2 Sat by Pulse Oximetry: 98 (RA) Pulse Ox Interpretation: Normal - Radiology CXR: Interpreted by Me, Viewed By Me CXR Interpretation: No: Infiltrates, Fracture, Pnemothorax (unchanged from ) Progress Note: cardiac work up , asa Reevaluation Time: 05:39 Reassessment Condition: Improved Medical Decision Making Medical Decision Making: I considered the following diagnoses: acute coronary syndrome, pulmonary embolism, lower respiratory infection, aortic dissection/aneurysm, pneumothorax , pericarditis, esophagitis/GERD, zoster and esophageal rupture but found them to be unlikely based on the history, physical exam, and diagnostics. My conclusions regarding the unlikely diagnoses were based on: the absence of significant EKG abnormalities, the lack of suggestive x-ray findings, the absence of significant abnormalities on cardiac monitoring, the absence of asymmetric pulses, Upon provider reevaluation patient is feeling better, is medically stable, and requires no further treatment in the ED at this time. Patient will be discharged home with Rx for zithromax, albuterol . Counseling was provided and all questions were answered regarding diagnosis and need for follow up with the referred clinic. There is agreement to discharge plan. Return if symptoms persist or worsen. Disposition Counseled Patient/Family Regarding: Studies Performed, Diagnosis, Need For Followup, Rx Given - Disposition Referrals: Remberto Zavala MD [Medical Doctor] - Disposition: HOME/ ROUTINE Disposition Time: 04:07 Condition: FAIR Prescriptions: Albuterol HFA [Ventolin HFA 90 mcg/actuation (8 g)] 2 puff IH [id number] #1 puff Azithromycin [Zithromax Tri-Dieter] 500 mg PO DAILY #3 tablet Instructions: Costochondritis (ED), Acute Bronchitis (ED) Forms: KOWN ([place]se) Print Language: YAKUT - Clinical Impression Clinical Impression: Chest discomfort, Bronchitis - Scribe Statement The provider has reviewed the documentation as recorded by the Scribe Mohamed roberto carlos All medical record entries made by the Delmi were at my direction and personally dictated by me. I have reviewed the chart and agree that the record accurately reflects my personal performance of the history, physical exam, medical decision making, and the department course for this patient. I have also personally directed, reviewed, and agree with the discharge instructions and disposition.
[2017-06-27] MEDS ORDERED: Aspirin 325 mg EC Tablets PO STA (04:16)
[2017-06-27 04:27] VITALS: RESP 14; TEMP 97.5
[2017-06-27 04:36] LABS: BASO # 0.1 K/uL (0.0-0.2); BASO % 0.8 % (0.0-2.0); EOS # 0.3 K/uL (0.0-0.7); EOS % 3.9 % (0.0-4.0); HEMATOCRIT 38.2 % (34.0-47.0); LYMPH # 1.9 K/uL (1.0-4.3); LYMPH % 22.2 % (20.0-40.0); MEAN CELL VOLUME 83.6 fL (81.0-99.0); MEAN CORPUSCULAR HEMOGLOBIN 27.7 pg (27.0-31.0); MEAN CORPUSCULAR HGB CONC 33.2 g/dL (33.0-37.0); MEAN PLATELET VOLUME 7.7 fL (7.2-11.7); MONO # 0.8 K/uL (0.0-0.8); MONO % 9.4 % (0.0-10.0); RED CELL DISTRIBUTION WIDTH 14.1 % (11.5-14.5); WHITE BLOOD COUNT 8.5 K/uL (4.8-10.8)
[2017-06-27 04:44] LABS: INR 1.1
[2017-06-27 04:57] LABS: CHLORIDE 107 mmol/L (98-107); SODIUM 140 mmol/L (132-148)
[2017-06-27 04:58] LABS: POTASSIUM 3.7 mmol/L (3.6-5.2)
[2017-06-27 05:00] LABS: ALB/GLOB RATIO 1.1 (1.0-2.1); ALKALINE PHOSPHATASE 92 U/L (38-126); ALT/SGPT 52 U/L (9-52); AST/SGOT 30 U/L (14-36); BILIRUBIN,TOTAL 0.4 mg/dL (0.2-1.3); BLOOD UREA NITROGEN 16 mg/dL (7-17); CARBON DIOXIDE 21 mmol/L (22-30); GFR AFRICAN-AMERICAN > 60; GLUCOSE,RANDOM 104 mg/dL (65-105)
[2017-06-27 05:58] VITALS: BP 120/70; PULSE 70; O2SAT 97
--- NOTE | 2017-06-27 08:34 | RAD ---
HISTORY: chest pain COMPARISON: Chest x-ray performed 04/23/17 TECHNIQUE: Chest, one view. FINDINGS: Examination limited by habitus. LUNGS: No focal consolidation. Please note that chest x-ray has limited sensitivity for the detection of pulmonary masses. PLEURA: No significant pleural effusion identified. No definite pneumothorax . CARDIOVASCULAR: The cardiomediastinal silhouette appears within normal limits of size. OSSEOUS STRUCTURES: Degenerative changes of the spine. VISUALIZED UPPER ABDOMEN: Unremarkable. OTHER FINDINGS: None. IMPRESSION: No focal consolidation, significant pleural effusion, or definite pneumothorax identified.
--- NOTE | 2017-06-27 19:53 | CARD ---
APPROVED REPORT EKG Measurement Heart [id number] [place] 138P47 [id number] <Conclusion> Normal sinus rhythm Possible Left atrial enlargement Prolonged QT Abnormal ECG
== END 2017-06-27 05:57 | disposition home or self-care (01) ==
LOC: C.ER 03:55
DX: J40 Bronchitis, not specified as acute or chronic (principal); R07.89 Other chest pain
CPT/HCPCS: 71010; 80053; 83880; 84484; 85025; 85610; 85730; 93005; 96374; 99283; J1885

== ENCOUNTER 2017-07-14 17:19 | Observation (INO) | payer OTHER ==
[~2017-07-14 17:19] MED LIST: Tramadol 25 mg PO ONE
[2017-07-14 17:22] VITALS: BMI 35.3
[2017-07-14] MEDS ORDERED: Aspirin 325 mg EC Tablets PO STA (17:56)
[2017-07-14 18:23] LABS: BASO # 0.1 K/uL (0.0-0.2); BASO % 0.6 % (0.0-2.0); EOS # 0.2 K/uL (0.0-0.7); EOS % 2.7 % (0.0-4.0); HEMATOCRIT 37.4 % (34.0-47.0); LYMPH # 1.8 K/uL (1.0-4.3); LYMPH % 20.7 % (20.0-40.0); MEAN CELL VOLUME 82.9 fL (81.0-99.0); MEAN CORPUSCULAR HEMOGLOBIN 27.8 pg (27.0-31.0); MEAN CORPUSCULAR HGB CONC 33.6 g/dL (33.0-37.0); MEAN PLATELET VOLUME 7.4 fL (7.2-11.7); MONO # 0.5 K/uL (0.0-0.8); MONO % 5.9 % (0.0-10.0); RED CELL DISTRIBUTION WIDTH 13.9 % (11.5-14.5); WHITE BLOOD COUNT 8.6 K/uL (4.8-10.8)
[2017-07-14 18:35] LABS: INR 1.1; PARTIAL THROMBOPLASTIN TIME 37 SECONDS (21-34)
[2017-07-14 18:38] LABS: URINE BACTERIA RARE (<OCC); URINE BILIRUBIN NEGATIVE (NEGATIVE); URINE BLOOD NEGATIVE (NEGATIVE); URINE COLOR Straw (YELLOW); URINE GLUCOSE (UA) NORMAL (Normal); URINE KETONE NEGATIVE (NEGATIVE); URINE LEUKOCYTE ESTERASE NEG Leu/uL (Negative); URINE PROTEIN NEGATIVE (NEGATIVE); URINE UROBILINOGEN NORMAL mg/dL (0.2-1.0); WBC URINE < 1 /hpf (0-5)
--- NOTE | 2017-07-14 18:48 | C.PDOC ---
History Of Present Illness <Yudith Crespo - Last Filed: 07/14/17 19:14> <Julia Fields - Last Filed: 07/14/17 19:47> 41 year old female presents to the ED with complaints of midsternal chest pain radiating to back and left shoulder that began today with shortness of breath. Patient denies weakness, numbness, fever, nausea, or vomiting. (Yudith Crespo) History Per: Patient History/Exam Limitations: no limitations Onset/Duration Of Symptoms: Hrs Current Symptoms Are (Timing): Still Present Quality: "Pain" Associated Symptoms: denies: Nausea, Dyspnea, Diaphoresis, Syncope Recent travel outside of the [place]: No <Yudith Crespo - Last Filed: 07/14/17 19:14> <Julia Fields - Last Filed: 07/14/17 19:47> Time Seen by Provider: 07/14/17 17:35 Chief Complaint (Nursing): Chest Pain Past Medical History Reviewed: Historical Data, Nursing Documentation, Vital Signs - Medical History PMH: Asthma, Kidney Stones Surgical History: Family History: States: Unknown Family Hx - Social History Hx Tobacco Use: No Hx Alcohol Use: No Hx Substance Use: No - Immunization History Hx Tetanus Toxoid Vaccination: No Hx Influenza Vaccination: No Hx Pneumococcal Vaccination: No <Yudith Crespo - Last Filed: 07/14/17 19:14> Review Of Systems Constitutional: Negative for: Fever, Chills Cardiovascular: Positive for: Chest Pain. Negative for: Palpitations Respiratory: Positive for: Shortness of Breath. Negative for: Cough Gastrointestinal: Negative for: Nausea, Vomiting, Abdominal Pain, Diarrhea Musculoskeletal: Positive for: Shoulder Pain (chest pain radiating to left shoulder ), Back Pain (chest pain radiating to back ) Neurological: Negative for: Weakness, Numbness <Yudith Crespo - Last Filed: 07/14/17 19:14> Physical Exam - Physical Exam Appears: Non-toxic Skin: Warm, Dry Head: Atraumatic Eye(s): bilateral: Normal Inspection Oral Mucosa: Moist Neck: Supple Chest: Symmetrical, No Deformity, No Tenderness Cardiovascular: Rhythm Regular, No Murmur Respiratory: Normal Breath Sounds, No Accessory Muscle Use, No Rales, No Rhonchi , No Wheezing Gastrointestinal/Abdominal: Soft, No Tenderness, No Distention, No Guarding, No Rebound Extremity: Normal ROM, No Tenderness Neurological/Psych: Oriented x3, Normal Speech, Normal Cognition, Normal Motor, Normal Sensation <Yudith Crespo - Last Filed: 07/14/17 19:14> ED Course And Treatment - Laboratory Results Result Diagrams: 07/14/17 18:20 ECG: Interpreted By Me, Viewed By Me ECG Rhythm: Sinus Rhythm Interpretation Of ECG: T-wave inversions 3 and AVF. Rate From EC - Radiology CXR: Interpreted by Me, Viewed By Me CXR Interpretation: Yes: No Acute Disease Progress Note: EKG, CXR, and labs were ordered. Patient was given Aspirin. At 19 :00 case was signed out to . <Yudith Crespo - Last Filed: 07/14/17 19:14> - Laboratory Results Result Diagrams: 07/14/17 18:20 07/14/17 19:12 Lab Interpretation: No Acute Changes Progress Note: Pt was signed out to me at 7pm by Dr. Neely/HAYDEN Crespo to f/up labs and admit pt for observation due to abnormal EKG. Reassessment Condition: Improved <Julia Fields E - Last Filed: 07/14/17 19:47> Disposition - Disposition Disposition Time: 19:00 <Yudith Crespo - Last Filed: 07/14/17 19:14> Discussed With : Alexis Krishna Comment: He accepted pt on hospitalist service. Doctor Will See Patient In The: Hospital Counseled Patient/Family Regarding: Studies Performed, Diagnosis - Disposition Disposition Time: 19:47 <Julia Fields E - Last Filed: 07/14/17 19:47> - Disposition Disposition: HOSPITALIZED Condition: FAIR - Clinical Impression Clinical Impression: Chest pain, Cocaine abuse - Scribe Statement The provider has reviewed the documentation as recorded by the Scribe <Yudith Crespo - Last Filed: 07/14/17 19:14> <Julia Fields E - Last Filed: 07/14/17 19:47> - Scribe Statement Azalia Escobar All medical record entries made by the Scribe were at my direction and personally dictated by me. I have reviewed the chart and agree that the record accurately reflects my personal performance of the history, physical exam, medical decision making, and the department course for this patient. I have also personally directed, reviewed, and agree with the discharge instructions and disposition. (Yudith Crespo) Physician Patient Turnover Patient Signed Over To: Julia Fields Handoff Comments: Labs and dispo are pending <Yudith Crespo - Last Filed: 07/14/17 19:14>
[2017-07-14] MEDS ORDERED: Aspirin 325 mg EC Tablets PO ONE (18:55)
[2017-07-14 19:23] LABS: CHLORIDE 107 mmol/L (98-107); SODIUM 145 mmol/L (132-148)
[2017-07-14 19:26] LABS: ALB/GLOB RATIO 1.3 (1.0-2.1); ALKALINE PHOSPHATASE 80 U/L (38-126); AST/SGOT 28 U/L (14-36); BILIRUBIN,TOTAL 0.4 mg/dL (0.2-1.3); BLOOD UREA NITROGEN 12 mg/dL (7-17); CARBON DIOXIDE 26 mmol/L (22-30); GFR AFRICAN-AMERICAN > 60; TOTAL PROTEIN 6.7 g/dL (6.3-8.3)
[2017-07-14 19:27] LABS: ALT/SGPT 39 U/L (9-52); CALCIUM 8.9 mg/dl (8.6-10.4); GLUCOSE,RANDOM 87 mg/dL (65-105)
[2017-07-15 02:00] VITALS: RESP 20
--- NOTE | 2017-07-15 02:32 | CP.PCM.HP ---
<Yumiko Martinez E - Last Filed: 07/15/17 04:12> History of Present Illness - History of Present Illness History of Present Illness: CC: Chest Pain HPI: Patient is a 41 year old female with past medical history of asthma, who presents to the ED with complaints of chest pain that started yesterday afternoon at 2pm, while the patient was shopping with her children. Patient describes the pain as a 8/10 intermittent reproducible pressure pain that is localized to the left side of her chest. Patient reports that the pain radiates to her left arm and left upper back. The chest pain is associated with shortness of breath. Patient states that she had similar episode without the SOB 3 1/2 months ago and was evaluated at [facility]. Patient admits to SOB , diaphoresis and left-arm numbness but denies palpitations, dizziness, nausea, vomiting and abdominal pain. PMD: Dr. Grace () PMHx: Asthma PSHx: X2, Cholecystectomy, Right Nephrectomy ( donated to her mother) FHx: Mother: at age 50 due to kidney transplant complications. Paternal Aunt: DM Medications: Albuterol (used once this year) and Aspirin 81mg PO daily Allergies: None Social history: Lives with children. 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 Denies tobacco, ETOH and illicit drug use Present on Admission - Present on Admission Any Indicators Present on Admission: No Review of Systems - Constitutional Constitutional: Weakness. absent: Chills, Fever, Headache - EENT Eyes: absent: Blurred Vision, Change in Vision Ears: absent: Dizziness - Cardiovascular Cardiovascular: Chest Pain, Diaphoresis, Dyspnea, Pain Radiating to Arm/Neck/Jaw , Radiating Pain. absent: Palpitations, Syncope - Respiratory Respiratory: Dyspnea - Gastrointestinal Gastrointestinal: absent: Abdominal Pain, Change in Bowel Habits, Constipation, Diarrhea, Nausea, Vomiting - Musculoskeletal Musculoskeletal: Numbness, Radiating Pain into Limb. absent: Tingling - Neurological Neurological: Numbness, Weakness. absent: Dizziness, Headaches, Syncope, Tingling - Endocrine Endocrine: absent: Palpitations Past Patient History - Infectious Disease Hx of Infectious Diseases: None - Past Medical History & Family History Past Medical History?: Yes - Past Social History Smoking Status: Never Smoked - CARDIAC Hx Cardiac Disorders: No - PULMONARY Hx Respiratory Disorders: Yes Hx Asthma: Yes - NEUROLOGICAL Hx Neurological Disorder: No - HEENT Hx HEENT Problems: No - RENAL Hx Chronic Kidney Disease: Yes Hx Kidney Stones: Yes - ENDOCRINE/METABOLIC Hx Endocrine Disorders: No - HEMATOLOGICAL/ONCOLOGICAL Hx Blood Disorders: No - INTEGUMENTARY Hx Dermatological Problems: No - MUSCULOSKELETAL/RHEUMATOLOGICAL Hx Musculoskeletal Disorders: No Hx Falls: No - GASTROINTESTINAL Hx Gastrointestinal Disorders: No - GENITOURINARY/GYNECOLOGICAL Hx Genitourinary Disorders: No - PSYCHIATRIC Hx Psychophysiologic Disorder: No Hx Substance Use: No - SURGICAL HISTORY Hx Surgeries: Yes Hx Section: Yes (x2) Other/Comment: Gall stones removed as per patient. Right kidney removed as per patient - ANESTHESIA Hx Anesthesia: Yes Hx Anesthesia Reactions: No Hx Malignant Hyperthermia: No Has any member of the family had a problem w/ anesthesia?: No Meds Allergies/Adverse Reactions: Allergies Allergy/AdvReac Type Severity Reaction Status Date / Time No Known Allergies Allergy Verified 04/23/17 13:24 Physical Exam - Constitutional Appears: No Acute Distress - Head Exam Head Exam: ATRAUMATIC - Eye Exam Eye Exam: EOMI, Normal appearance - Respiratory Exam Respiratory Exam: Clear to Auscultation Bilateral, NORMAL BREATHING PATTERN - Cardiovascular Exam Cardiovascular Exam: REGULAR RHYTHM, +S1, +S2 - GI/Abdominal Exam GI & Abdominal Exam: Normal Bowel Sounds, Soft. absent: Tenderness - Extremities Exam Extremities exam: Positive for: normal inspection. Negative for: calf tenderness, pedal edema - Back Exam Back exam: vertebral tenderness Additional comments: left upper back - Neurological Exam Neurological exam: Alert, Oriented x3 - Psychiatric Exam Psychiatric exam: Normal Affect, Normal Mood - Skin Skin Exam: Normal Color, Warm Results - Vital Signs Recent Vital Signs: Last Vital Signs Temp 98.0 F 07/15/17 00:00 Pulse 77 07/15/17 00:00 Resp 20 07/15/17 00:00 BP 100/65 07/15/17 00:00 Pulse Ox 98 07/15/17 00:00 - Labs Result Diagrams: 07/14/17 18:20 07/14/17 19:12 Labs: Laboratory Results - last 24 hr 07/15/17 00:51 Total Creatine Kinase 183 H CK-MB (Mass) 1.13 Troponin I, Quant < 0.0120 Assessment & Plan (1) Chest pain, rule out acute myocardial infarction Assessment and Plan: Observation on telemetry * PORTER negative X1; f/u PORTER x2 * EKG: NSR, T-wave abnormality, no acute ST changes * Echocardiogram (04/23/15): EF (65-70%) with mild MR. LV and RV within normal size and normal systolic function * D-dimer: <200 * Lipid Panel (04/24/17): T, Cholesterol: 166, LDL: 115 and HDL: 43 * HgbA1C (04/24/17): 5.5 * TSH and Free T4 (04/24/17): 2.98 and 1.07 Medication: * Aspirin 325mg PO given in the ED * Aspirin 81mg PO daily As per last admission discharge summary note, patient was instructed to follow up with Dr. James for an outpatient stress rest Status: Acute (2) Musculoskeletal chest pain Assessment and Plan: Tramadol 25mg PO once Status: Acute (3) Prophylactic measure Assessment and Plan: Ambulates SCDs Status: Acute <Alexis Krishna P - Last Filed: 07/15/17 20:00> Results - Vital Signs Recent Vital Signs: Last Vital Signs Temp 97.4 F L 07/15/17 15:00 Pulse 68 07/15/17 16:40 Resp 20 07/15/17 15:00 BP 112/71 07/15/17 15:00 Pulse Ox 96 07/15/17 15:00 - Labs Result Diagrams: 07/14/17 18:20 07/14/17 19:12 Labs: Laboratory Results - last 24 hr 07/15/17 07/15/17 00:51 07:24 Total Creatine Kinase 183 H 135 CK-MB (Mass) 1.13 1.12 Troponin I, Quant < 0.0120 < 0.0120 Attending/Attestation - Attestation I have personally seen and examined this patient.: Yes I have fully participated in the care of the patient.: Yes I have reviewed all pertinent clinical information: Yes Notes (Text): 07/15/17 19:57 Atypical chest pain reproducible with pressure in the left 3-4 costocondral junction, also mid back, reproducible with stretching left arm medially, no sob , negative ddimer with single kidney, r/o pe/dissection. Abnormal EKG with pattern of inferior ischemia if really form ischemia should raise some troponin in serial test as pain lasted for about 1 hr. Will do serial enzymes.
--- NOTE | 2017-07-15 06:12 | RAD ---
PROCEDURE: CHEST RADIOGRAPH, 1 VIEW HISTORY: SOB/ CP COMPARISON: 06/27/2017 FINDINGS: LUNGS: Mild venous congestion. Right hilar prominence. PLEURA: No pneumothorax or pleural fluid seen. CARDIOVASCULAR: Normal. OSSEOUS STRUCTURES: No significant abnormalities. VISUALIZED UPPER ABDOMEN: Normal. OTHER FINDINGS: None. IMPRESSION: Mild venous congestion. Right hilar prominence.
[2017-07-15 08:11] VITALS: TEMP 97.4
--- NOTE | 2017-07-15 12:37 | CP.PCM.PN ---
<FedericoVioleta - Last Filed: 07/15/17 12:34> Subjective - Date & Time of Evaluation Date of Evaluation: 07/15/17 Time of Evaluation: 12:34 - Subjective Subjective: Pt seen and examined at bedside. Patient doing well today but c/o L sided headache that started this morning. Patient says she is feeling much better than yesterday and denies CP/SOB/Palpitations/AP/N/V/D/C. Patient asked about stress test that was supposed to be done outpatient after the last admission and the patient says she knew about this but did not know she was supposed to f/ u and thought they would reach out to her for this. Objective - Vital Signs/Intake and Output Vital Signs (last 24 hours): Temp Pulse Resp BP Pulse Ox 97.4 F L 85 20 113/74 99 07/15/17 07:10 07/15/17 12:30 07/15/17 07:10 07/15/17 12:30 07/15/17 07:10 Intake and Output: 07/15/17 07/15/17 06:59 18:59 Intake Total 300 Balance 300 - Medications Medications: Current Medications Acetaminophen (Tylenol 325mg Tab) 650 mg PO Q6 PRN PRN Reason: Headache Last Admin: 07/15/17 12:21 Dose: 650 mg Aspirin (Ecotrin) 81 mg PO DAILY PRESTON Last Admin: 07/15/17 09:46 Dose: 81 mg Pneumococcal Polyvalent Vaccine (Pneumovax 23 Vaccine) 0.5 ml IM .ONCE ONE Stop: 07/17/17 10:01 - Labs Labs: PT 12.5 SECONDS (9.7-12.2) H 07/14/17 18:20 INR 1.1 07/14/17 18:20 APTT 37 SECONDS (21-34) H 07/14/17 18:20 - Constitutional Appears: Non-toxic, No Acute Distress - Head Exam Head Exam: NORMAL INSPECTION - Eye Exam Eye Exam: EOMI - ENT Exam ENT Exam: Mucous Membranes Moist - Respiratory Exam Respiratory Exam: Clear to Ausculation Bilateral, NORMAL BREATHING PATTERN - Cardiovascular Exam Cardiovascular Exam: REGULAR RHYTHM, +S1, +S2. absent: Bradycardia, Tachycardia - GI/Abdominal Exam GI & Abdominal Exam: Soft. absent: Distended, Tenderness - Extremities Exam Extremities Exam: Normal Inspection. absent: Pedal Edema - Neurological Exam Neurological Exam: Alert, Awake - Psychiatric Exam Psychiatric exam: Normal Affect, Normal Mood - Skin Skin Exam: Dry, Intact, Warm Assessment and Plan - Assessment and Plan (Free Text) Assessment: (1) Chest pain, rule out acute myocardial infarction Observation on telemetry * PORTER negative X3 * EKG: NSR, T-wave abnormality, no acute ST changes * Echocardiogram (04/23/15): EF (65-70%) with mild MR. LV and RV within normal size and normal systolic function * D-dimer: <200 * Lipid Panel (04/24/17): T, Cholesterol: 166, LDL: 115 and HDL: 43 * HgbA1C (04/24/17): 5.5 * TSH and Free T4 (04/24/17): 2.98 and 1.07 Medication: * Aspirin 325mg PO given in the ED * Aspirin 81mg PO daily As per last admission discharge summary note, patient was instructed to follow up with Dr. James for an outpatient stress rest. Patient did not f/u because she was not proactive and thought they would reach out to her instead of her setting this up. (2) Musculoskeletal chest pain Tramadol 25mg PO once (3) Prophylactic measure Ambulates SCDs <Raymond Tineo - Last Filed: 07/15/17 19:00> Objective - Vital Signs/Intake and Output Vital Signs (last 24 hours): Temp Pulse Resp BP Pulse Ox 97.4 F L 68 20 112/71 96 07/15/17 15:00 07/15/17 16:40 07/15/17 15:00 07/15/17 15:00 07/15/17 15:00 Intake and Output: 07/15/17 07/15/17 06:59 18:59 Intake Total 300 Balance 300 - Medications Medications: Current Medications Acetaminophen (Tylenol 325mg Tab) 650 mg PO Q6 PRN PRN Reason: Headache Last Admin: 07/15/17 12:21 Dose: 650 mg Aspirin (Ecotrin) 81 mg PO DAILY PRESTON Last Admin: 07/15/17 09:46 Dose: 81 mg Pneumococcal Polyvalent Vaccine (Pneumovax 23 Vaccine) 0.5 ml IM .ONCE ONE Stop: 07/17/17 10:01 - Labs Labs: PT 12.5 SECONDS (9.7-12.2) H 07/14/17 18:20 INR 1.1 07/14/17 18:20 APTT 37 SECONDS (21-34) H 07/14/17 18:20 Attending/Attestation - Attestation I have personally seen and examined this patient.: Yes I have fully participated in the care of the patient.: Yes I have reviewed all pertinent clinical information, including history, physical exam and plan: Yes Notes (Text): 07/15/17 18:58 Patient was seen and examined at 2:15 PM Only having chest pain when she touches the area. The pain was reproducible on my exam by palpating the 3rd/4th left intercostal space and the left Supraspinatus muscle. The rest of her her exam was unremarkable. I reviewed the patient's labs and EKG with Director Of Critical Care Dr. Fowler and she is stable for discharge from his standpoint and from medicine team's standpoint. Raymond Tineo D.O.
[2017-07-15 15:58] VITALS: BP 112/71; O2SAT 96
[2017-07-15 16:05] VITALS: PULSE 68
--- NOTE | 2017-07-15 17:10 | CP.PCM.DIS ---
<Violeta Caballero - Last Filed: 07/15/17 17:07> Provider - Provider Date of Admission: 07/14/17 19:48 Attending physician: Alexis Krishna MD Consults: Dr. Fowler (cardiology) Time Spent in preparation of Discharge (in minutes): 35 Diagnosis - Discharge Diagnosis (1) Chest pain, rule out acute myocardial infarction Status: Acute Comment: Please see summary for more details Hospital Course - Lab Results Lab Results: Most Recent Lab Values WBC 8.6 K/uL (4.8-10.8) 07/14/17 18:20 RBC 4.51 Mil/uL (3.80-5.20) 07/14/17 18:20 Hgb 12.6 g/dL (11.0-16.0) 07/14/17 18:20 Hct 37.4 % (34.0-47.0) 07/14/17 18:20 MCV 82.9 fL (81.0-99.0) 07/14/17 18:20 MCH 27.8 pg (27.0-31.0) 07/14/17 18:20 MCHC 33.6 g/dL (33.0-37.0) 07/14/17 18:20 RDW 13.9 % (11.5-14.5) 07/14/17 18:20 Plt Count 273 K/uL (130-400) 07/14/17 18:20 MPV 7.4 fL (7.2-11.7) 07/14/17 18:20 Neut % (Auto) 70.1 % (50.0-75.0) 07/14/17 18:20 Lymph % (Auto) 20.7 % (20.0-40.0) 07/14/17 18:20 Grand % (Auto) 5.9 % (0.0-10.0) 07/14/17 18:20 Eos % (Auto) 2.7 % (0.0-4.0) 07/14/17 18:20 Baso % (Auto) 0.6 % (0.0-2.0) 07/14/17 18:20 Neut # 6.0 K/uL (1.8-7.0) 07/14/17 18:20 Lymph # 1.8 K/uL (1.0-4.3) 07/14/17 18:20 Grand # 0.5 K/uL (0.0-0.8) 07/14/17 18:20 Eos # 0.2 K/uL (0.0-0.7) 07/14/17 18:20 Baso # 0.1 K/uL (0.0-0.2) 07/14/17 18:20 PT 12.5 SECONDS (9.7-12.2) H 07/14/17 18:20 INR 1.1 07/14/17 18:20 APTT 37 SECONDS (21-34) H 07/14/17 18:20 D-Dimer, Quantitative < 200 ng/mlDDU (0-243) 07/14/17 18:20 Sodium 145 mmol/L (132-148) 07/14/17 19:12 Potassium 4.0 mmol/L (3.6-5.2) 07/14/17 19:12 Chloride 107 mmol/L (98-107) 07/14/17 19:12 Carbon Dioxide 26 mmol/L (22-30) 07/14/17 19:12 Anion Gap 16 (10-20) 07/14/17 19:12 BUN 12 mg/dL (7-17) 07/14/17 19:12 Creatinine 0.7 MG/DL (0.7-1.2) 07/14/17 19:12 Est GFR ( Amer) > 60 07/14/17 19:12 Est GFR (Non-Af Amer) > 60 07/14/17 19:12 Random Glucose 87 mg/dL (65-105) 07/14/17 19:12 Calcium 8.9 mg/dl (8.6-10.4) 07/14/17 19:12 Total Bilirubin 0.4 mg/dL (0.2-1.3) 07/14/17 19:12 AST 28 U/L (14-36) 07/14/17 19:12 ALT 39 U/L (9-52) 07/14/17 19:12 Alkaline Phosphatase 80 U/L (38-126) 07/14/17 19:12 Total Creatine Kinase 135 U/L (30-135) 07/15/17 07:24 CK-MB (Mass) 1.12 ng/mL (0.0-3.38) 07/15/17 07:24 Troponin I < 0.0120 ng/mL (0.00-0.120) 07/14/17 18:20 Troponin I, Quant < 0.0120 ng/mL (0.00-0.120) 07/15/17 07:24 Total Protein 6.7 g/dL (6.3-8.3) 07/14/17 19:12 Albumin 3.8 g/dL (3.5-5.0) 07/14/17 19:12 Globulin 2.9 gm/dL (2.2-3.9) 07/14/17 19:12 Albumin/Globulin Ratio 1.3 (1.0-2.1) 07/14/17 19:12 Urine Color Straw (YELLOW) 07/14/17 18:24 Urine Clarity Clear (Clear) 07/14/17 18:24 Urine pH 7.0 (5.0-8.0) 07/14/17 18:24 Ur Specific [place] 1.005 (1.003-1.030) 07/14/17 18:24 Urine Protein Negative mg/dL (NEGATIVE) 07/14/17 18:24 Urine Glucose (UA) Normal mg/dL (Normal) 07/14/17 18:24 Urine Ketones Negative mg/dL (NEGATIVE) 07/14/17 18:24 Urine Blood Negative (NEGATIVE) 07/14/17 18:24 Urine Nitrate Negative (NEGATIVE) 07/14/17 18:24 Urine Bilirubin Negative (NEGATIVE) 07/14/17 18:24 Urine Urobilinogen Normal mg/dL (0.2-1.0) 07/14/17 18:24 Ur Leukocyte Esterase Neg Melody/uL (Negative) 07/14/17 18:24 Urine WBC (Auto) < 1 /hpf (0-5) 07/14/17 18:24 Ur Squamous Epith Cells 3 /hpf (0-5) 07/14/17 18:24 Urine Bacteria Rare (<OCC) 07/14/17 18:24 Urine HCG, Qual Negative (NEGATIVE) 07/14/17 18:24 - Hospital Course Hospital Course: On Admission: Patient is a 41 year old female with past medical history of asthma, who presents to the ED with complaints of chest pain that started yesterday afternoon at 2pm, while the patient was shopping with her children. Patient describes the pain as a 8/10 intermittent reproducible pressure pain that is localized to the left side of her chest. Patient reports that the pain radiates to her left arm and left upper back. The chest pain is associated with shortness of breath. Patient states that she had similar episode without the SOB 3 1/2 months ago and was evaluated at [facility]. Patient admits to SOB , diaphoresis and left-arm numbness but denies palpitations, dizziness, nausea, vomiting and abdominal pain. Hospital Course: Patient was admitted for observation on telemetry. Patient had ECG in the ED showing NSR, T-wave abnormality, no acute ST changes. Chest xray was done as well in the ED and showed mild venous congestions with right hilar prominence. D -dimer was <200. Patient was given Aspirin 325mg PO in the ED and continued on aspirin 81 mg PO QD during her stay. PORTER Panel was ordered and followed which was unremarkable and negative x3. Patient had prior labs that were used in her assessment from 04/24/17 with Lipid panel showing T, Cholesterol: 166, LDL: 115 and HDL: 43; HgbA1C: 5.5; TSH and Free T4: 2.98 and 1.07. Patient was found to have reproducible chest pain with palpation at the left side of the chest near ribs 3-4. Patient was given Tramadol 25 mg PO x1 for this musculoskeletal pain. As per last admission discharge summary note, patient was instructed to follow up with Dr. James for an outpatient stress rest. Patient did not have this done because she could not afford this. Dr. Fowler (cardiology) was consulted and he did not think the patient needed a stress test done during admission based on the patient's status, recommending outpatient follow up. Patient stable for discharge per Dr. Tineo. Patient is to follow up at the [facility] in 1 week on floor B. . Please note that this is only a summary of events and for complete details, please refer to the medical records. - Date & Time of H&P Date of H&P: 07/15/17 Time of H&P: 02:31 Discharge Exam - Head Exam Head Exam: NORMAL INSPECTION - Eye Exam Eye Exam: EOMI - ENT Exam ENT Exam: Mucous Membranes Moist - Respiratory Exam Respiratory Exam: Clear to PA & Lateral, NORMAL BREATHING PATTERN, UNREMARKABLE - Cardiovascular Exam Cardiovascular Exam: REGULAR RHYTHM, +S1, +S2 - GI/Abdominal Exam GI & Abdominal Exam: Normal Bowel Sounds, Soft, Unremarkable. absent: Tenderness - Extremities Exam Extremities exam: normal inspection - Neurological Exam Neurological exam: Alert, Oriented x3 - Psychiatric Exam Psychiatric exam: Normal Affect, Normal Mood - Skin Skin Exam: Dry, Intact, Normal Color, Warm Discharge Plan - Follow Up Plan Condition: FAIR Disposition: HOME/ ROUTINE Instructions: Aspirin (By mouth), Chest Pain (DC), Asthma (DC), Acute Headache (DC), Dyspnea (GEN) Additional Instructions: Patient is to follow up at the [facility] in 1 week on floor B. Referrals: [facility] [Outside] <Raymond Tineo - Last Filed: 07/15/17 19:01> Provider - Provider Date of Admission: 07/14/17 19:48 Attending physician: Alexis Krishna MD Hospital Course - Lab Results Lab Results: Most Recent Lab Values WBC 8.6 K/uL (4.8-10.8) 07/14/17 18:20 RBC 4.51 Mil/uL (3.80-5.20) 07/14/17 18:20 Hgb 12.6 g/dL (11.0-16.0) 07/14/17 18:20 Hct 37.4 % (34.0-47.0) 07/14/17 18:20 MCV 82.9 fL (81.0-99.0) 07/14/17 18:20 MCH 27.8 pg (27.0-31.0) 07/14/17 18:20 MCHC 33.6 g/dL (33.0-37.0) 07/14/17 18:20 RDW 13.9 % (11.5-14.5) 07/14/17 18:20 Plt Count 273 K/uL (130-400) 07/14/17 18:20 MPV 7.4 fL (7.2-11.7) 07/14/17 18:20 Neut % (Auto) 70.1 % (50.0-75.0) 07/14/17 18:20 Lymph % (Auto) 20.7 % (20.0-40.0) 07/14/17 18:20 Grand % (Auto) 5.9 % (0.0-10.0) 07/14/17 18:20 Eos % (Auto) 2.7 % (0.0-4.0) 07/14/17 18:20 Baso % (Auto) 0.6 % (0.0-2.0) 07/14/17 18:20 Neut # 6.0 K/uL (1.8-7.0) 07/14/17 18:20 Lymph # 1.8 K/uL (1.0-4.3) 07/14/17 18:20 Grand # 0.5 K/uL (0.0-0.8) 07/14/17 18:20 Eos # 0.2 K/uL (0.0-0.7) 07/14/17 18:20 Baso # 0.1 K/uL (0.0-0.2) 07/14/17 18:20 PT 12.5 SECONDS (9.7-12.2) H 07/14/17 18:20 INR 1.1 07/14/17 18:20 APTT 37 SECONDS (21-34) H 07/14/17 18:20 D-Dimer, Quantitative < 200 ng/mlDDU (0-243) 07/14/17 18:20 Sodium 145 mmol/L (132-148) 07/14/17 19:12 Potassium 4.0 mmol/L (3.6-5.2) 07/14/17 19:12 Chloride 107 mmol/L (98-107) 07/14/17 19:12 Carbon Dioxide 26 mmol/L (22-30) 07/14/17 19:12 Anion Gap 16 (10-20) 07/14/17 19:12 BUN 12 mg/dL (7-17) 07/14/17 19:12 Creatinine 0.7 MG/DL (0.7-1.2) 07/14/17 19:12 Est GFR ( Amer) > 60 07/14/17 19:12 Est GFR (Non-Af Amer) > 60 07/14/17 19:12 Random Glucose 87 mg/dL (65-105) 07/14/17 19:12 Calcium 8.9 mg/dl (8.6-10.4) 07/14/17 19:12 Total Bilirubin 0.4 mg/dL (0.2-1.3) 07/14/17 19:12 AST 28 U/L (14-36) 07/14/17 19:12 ALT 39 U/L (9-52) 07/14/17 19:12 Alkaline Phosphatase 80 U/L (38-126) 07/14/17 19:12 Total Creatine Kinase 135 U/L (30-135) 07/15/17 07:24 CK-MB (Mass) 1.12 ng/mL (0.0-3.38) 07/15/17 07:24 Troponin I < 0.0120 ng/mL (0.00-0.120) 07/14/17 18:20 Troponin I, Quant < 0.0120 ng/mL (0.00-0.120) 07/15/17 07:24 Total Protein 6.7 g/dL (6.3-8.3) 07/14/17 19:12 Albumin 3.8 g/dL (3.5-5.0) 07/14/17 19:12 Globulin 2.9 gm/dL (2.2-3.9) 07/14/17 19:12 Albumin/Globulin Ratio 1.3 (1.0-2.1) 07/14/17 19:12 Urine Color Straw (YELLOW) 07/14/17 18:24 Urine Clarity Clear (Clear) 07/14/17 18:24 Urine pH 7.0 (5.0-8.0) 07/14/17 18:24 Ur Specific [place] 1.005 (1.003-1.030) 07/14/17 18:24 Urine Protein Negative mg/dL (NEGATIVE) 07/14/17 18:24 Urine Glucose (UA) Normal mg/dL (Normal) 07/14/17 18:24 Urine Ketones Negative mg/dL (NEGATIVE) 07/14/17 18:24 Urine Blood Negative (NEGATIVE) 07/14/17 18:24 Urine Nitrate Negative (NEGATIVE) 07/14/17 18:24 Urine Bilirubin Negative (NEGATIVE) 07/14/17 18:24 Urine Urobilinogen Normal mg/dL (0.2-1.0) 07/14/17 18:24 Ur Leukocyte Esterase Neg Melody/uL (Negative) 07/14/17 18:24 Urine WBC (Auto) < 1 /hpf (0-5) 07/14/17 18:24 Ur Squamous Epith Cells 3 /hpf (0-5) 07/14/17 18:24 Urine Bacteria Rare (<OCC) 07/14/17 18:24 Urine HCG, Qual Negative (NEGATIVE) 07/14/17 18:24 Attending/Attestation - Attestation I have personally seen and examined this patient.: Yes I have fully participated in the care of the patient.: Yes I have reviewed all pertinent clinical information, including history, physical exam and plan: Yes
--- NOTE | 2017-07-16 00:27 | CARD ---
APPROVED REPORT EKG Measurement Heart [id number] AL [id number] <Conclusion> Normal sinus rhythm Rightward axis T wave abnormality, consider inferior ischemia Abnormal ECG
--- NOTE | 2017-07-16 03:33 | CON ---
REQUESTING PHYSICIAN: Dr. Melina Tineo, the hospitalist. LOCATION: Presently in room 651 A. HISTORY OF PRESENT ILLNESS: Requested to see this 41-year-old female admitted with highly atypical chest pain. She has had several bouts of this kind of pain. She is under a lot of stress at home. She is single now. was deported in the past and she is undocumented at this point, but however came from [facility] many years ago in a tourist visa and stayed, now she has two children here, 11 and 6 years old, born here and she is alone, no family, no mother, no father, no , brothers or sisters, lives by herself, taking care of these 2 kids. She works in a warehouse, lifting boxes all day at work and every time that she lifts these boxes she is complaining of pain in the left shoulder area. She denied any dizziness or syncope. She has come to this institution on several occasions in the last few months, similar complaints and she acknowledges that she is on the severe emotional stress. All investigations so far have been benign. During this admission, serial troponins were negative for an acute myocardial infarction, one EKG showing nonspecific ST-T changes; however, it is similar to some EKGs done in the recent past, sometime in the April of this year. I reviewed her echocardiogram that was done in April showing normal left ventricular function, a little possible mitral regurgitation, as well as mild degree of tricuspid regurgitation, normal left ventricular wall motion, nothing spectacular. Chest x-ray, poor inspiratory effort, no acute infiltrates. Once again from the social economical viewpoint that she lives alone, with no support with 2 children here. She does not smoke, does not drink, does not do any illicit drugs. Mother and father in the age 50s, but unknown cause to her. REVIEW OF SYSTEMS: Other than the above, otherwise negative. PHYSICAL EXAMINATION: GENERAL: Reveals an adult mildly overweight female, very pleasant and cooperative, in no distress whatsoever. VITAL SIGNS: Vitals signs are totally stable. Blood pressure and pulse via telemetry within physiological parameters. CARDIOPULMONARY: From the cardiopulmonary viewpoint, the chest appears normal in anatomy, no deformities. During palpation, there is pain in the left supramammary area radiating in the left shoulder, especially when moving the left arm. No thrills. Auscultation reveals heart sounds normal in intensity and normal in rhythm. Jugular veins and carotids and peripheral pulses are unremarkable. LUNGS: Clear. ABDOMEN: Mildly obese. No localized tenderness. VP COMPLIANCE: Alert, oriented, no deficit. Complementary data reviewed and all within physiological parameters. EKG show nonspecific ST changes, not significantly different than before, normal for a female. IMPRESSION: 1. Musculoskeletal chest pain. 2. No evidence of any cardiac abnormalities at this point in time. 3. Reactive depression and anxiety. SUGGESTION: Case was extensively discussed with hospitalist, Dr. Melina Tineo, who is taking care of the patient and we went over all the situation and this lady is cleared to be sent home. No further cardiology investigations at this point, at least not in the hospital. Perhaps she should be followed up in the medical clinic and the medical clinic should refer her into the cardiology clinic and it is necessary to consider a regular stress test. Incidentally, I made her walk very fast here on the floor around the floor and she actually was almost running and she felt very well. She claims that at no time she has any exertional chest pain. It is only when she is moving the left arm and moving the muscles and when she is under stress. Eliezer Fowler MD
[2017-07-17] MEDS ORDERED: Pneumococcal 23-Valent Vaccine IM ONE (10:00)
--- NOTE | 2017-07-17 18:48 | CARD ---
APPROVED REPORT EKG Measurement Heart [id number] <Conclusion> Normal sinus rhythm Rightward axis Borderline ECG
== END 2017-07-15 19:00 | disposition home or self-care (01) ==
LOC: C.ER 17:19 → C.6T 19:48
PROVIDERS: ADMIT Internal Medicine; ATTEND Internal Medicine
DX: J45.909 Unspecified asthma, uncomplicated (principal)
CPT/HCPCS: 36415; 71010; 80053; 81001; 82550; 82553; 84484; 84703; 85025; 85378; 85610; 85730; 99285; G0378

== ENCOUNTER 2018-12-06 21:03 | Emergency (ER) | payer SELFPAY ==
[2018-12-06 21:03] VITALS: BMI 35.3
[2018-12-06] MEDS ORDERED: Amoxicillin-Clav 500-125 mg Tab PO STA (23:23)
[2018-12-06] MEDS ORDERED: Amoxicillin-Clav 875-125 mg Tab PO ONE (23:29)
--- NOTE | 2018-12-07 | C.PDOC ---
History Of Present Illness 43 y/o female presents to the ED for complaints of cough, nasal congestion, sore throat, and earache onset 2 days ago. No fever. No sick contacts. Denies any SOB, wheezing, or chest pain. Patient has no GI complaints or abdominal pain. Time Seen by Provider: 12/06/18 22:39 Chief Complaint (Nursing): Cough, Cold, Congestion History Per: Patient History/Exam Limitations: no limitations Onset/Duration Of Symptoms: Days (x3) Current Symptoms Are (Timing): Still Present Location Of Pain: Ear(s), Throat Associated Symptoms: Fever, Cough, Sinus Drainage, Nasal Congestion Past Medical History Reviewed: Historical Data, Nursing Documentation, Vital Signs Vital Signs: Last Vital Signs Temp 99.8 F H 12/06/18 21: Pulse 102 H 12/06/18 21:27 Resp 18 12/06/18 21: BP Pulse Ox 99 12/06/18 21:27 - Medical History PMH: Asthma, Kidney Stones, Chronic Kidney Disease Surgical History: Family History: States: Unknown Family Hx - Social History Hx Tobacco Use: No Hx Alcohol Use: No Hx Substance Use: No - Immunization History Hx Tetanus Toxoid Vaccination: No Hx Influenza Vaccination: No Hx Pneumococcal Vaccination: No Review Of Systems Constitutional: Positive for: Fever ENT: Positive for: Ear Pain, Nose Congestion, Throat Pain Cardiovascular: Negative for: Chest Pain Respiratory: Positive for: Cough. Negative for: Shortness of Breath, Wheezing Gastrointestinal: Negative for: Nausea, Vomiting, Abdominal Pain, Diarrhea Genitourinary: Negative for: Dysuria, Frequency Skin: Negative for: Rash Neurological: Negative for: Weakness, Dizziness Physical Exam - Physical Exam Appears: Non-toxic, No Acute Distress Skin: Warm, Dry, No Rash Head: Normacephalic, Tenderness (Frontal sinus tenderness) Eye(s): bilateral: Normal Inspection, PERRL, EOMI Ear(s): Bilateral: TM Erythema (mild erythema to TMs and canal bilaterally, no bulging or effusion) Nose: Other (Enlarged nasal turbinates bilaterally) Oral Mucosa: Moist Throat: Normal, No Erythema, No Exudate Neck: Supple Lymphatic: No Adenopathy (No tender cervical nodes) Cardiovascular: Rhythm Regular, No Murmur Respiratory: Normal Breath Sounds, No Rales, No Rhonchi, No Wheezing Gastrointestinal/Abdominal: Soft, No Distention Extremity: Bilateral: Atraumatic, Normal ROM Neurological/Psych: Oriented x3 ED Course And Treatment O2 Sat by Pulse Oximetry: 99 (RA) Pulse Ox Interpretation: Normal Progress Note: Patient treated for otitis media and sinusitis, given initial dose of Augmentin in the ED. Motrin and Benadryl also given here. On reevaluation she is resting comfortably, lungs clear bilaterally, in NAD. Advised patient to follow up with PMD in 1-2 days. Disposition Counseled Patient/Family Regarding: Diagnosis, Need For Followup, Rx Given - Disposition Disposition: HOME/ ROUTINE Disposition Time: 00:00 Condition: STABLE Additional Instructions: Please follow up with PMD Take medications as directed Return to ER if worse Prescriptions: Amoxicillin/Clavulanate [Augmentin 500 MG-125 MG] 1 tab PO TID #20 tab Cetirizine HCl [Zyrtec] 10 mg PO DAILY #14 capsule Ibuprofen [Motrin] 600 mg PO Q6H #20 tab Instructions: Ear Infections (Otitis Media) (DC), Sinusitis, Adult (DC) Forms: [employer] (now [employer]) (Greek) Print Language: CANADIAN - POA Present On Arrival: None - Clinical Impression Clinical Impression: Sinusitis, Otitis media - 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 - Scribe Statement The provider has reviewed the documentation as recorded by the Raziaibalina Nieto All medical record entries made by the Delmi were at my direction and personally dictated by me. I have reviewed the chart and agree that the record accurately reflects my personal performance of the history, physical exam, medical decision making, and the department course for this patient. I have also personally directed, reviewed, and agree with the discharge instructions and disposition.
[2018-12-07 00:21] VITALS: BP 116/82; PULSE 100; RESP 16; TEMP 98.9
[2018-12-07 00:28] VITALS: O2SAT 99
== END 2018-12-07 00:19 | disposition home or self-care (01) ==
LOC: C.ER 21:03
DX: J32.9 Chronic sinusitis, unspecified (principal); H66.93 Otitis media, unspecified, bilateral